=== PATIENT | male | born 1970 | race Caucasian/White ===

== ENCOUNTER 2023-05-07 02:53 | Emergency (ER) | payer MEDICAID ==
[~2023-05-07] VITALS: Ht 175.3 cm; Wt 104.5 kg
[2023-05-07] MEDS ORDERED: normal saline 1000ML IV soln IVB STA (03:45)
[2023-05-07] MEDS ORDERED: famotidine/PF 10 mg/ml inj IV ONE (03:45)
[2023-05-07] MEDS ORDERED: diphenhydrAMINE 50 mg/ml inj IV ONE (03:45)
[2023-05-07] MEDS ORDERED: epiNEPHrine 1 mg/ml inj IM STA (03:45)
[2023-05-07] MEDS ORDERED: dexamethasone 4mg/ml inj IV ONE (03:45)
[2023-05-07 05:03] LABS: ALANINE AMINOTRANSFERASE 24 U/L (12-78); ALBUMIN 3.5 G/DL (3.4-5.0); ALBUMIN/GLOBULIN RATIO 0.9 (1.1-1.5); ALKALINE PHOSPHATASE 136 IU/L (46-116); ANION GAP 8 (8-16); ASPARTATE AMINO TRANSFERASE 15 U/L (10-37); BILIRUBIN,TOTAL 0.5 MG/DL (0.1-1.0); BLOOD UREA NITROGEN 9 MG/DL (7-18); BUN/CREATININE RATIO 11.8 (10.0-20.0); CALCIUM 8.7 MG/DL (8.5-10.1); CHLORIDE 101 MMOL/L (99-107); CREATININE 0.76 MG/DL (0.60-1.10); GLUCOSE 233 MG/DL (70-104); POTASSIUM 3.3 MMOL/L (3.5-5.1); SODIUM 137 MMOL/L (135-145); TOTAL CARBON DIOXIDE 27.9 MMOL/L (24-32); TOTAL PROTEIN 7.5 G/DL (6.4-8.2); eCRCL 112 ML/MIN; eGFR > 90 ML/MIN
[2023-05-07 05:13] LABS: BASOPHILS # (AUTO) 0.1 X10'3 (0-0.2); BASOPHILS % (AUTO) 0.4 % (0-1); EOSINOPHILS # (AUTO) 0.5 X10'3 (0-0.9); EOSINOPHILS % (AUTO) 2.7 % (0-6); HEMATOCRIT 41.9 % (42.0-52.0); HEMOGLOBIN 14.2 g/dl (14.0-17.9); LYMPHOCYTES % (AUTO) 11.7 % (21-51); MEAN CORPUSCULAR HGB CONC 33.9 g/dL (33.0-36.5); MEAN CORPUSCULAR VOLUME 85.5 FL (78-98); MEAN PLATELET VOLUME 7.6 FL (7.4-10.4); MONOCYTES # (AUTO) 1.9 X10'3 (0-0.9); MONOCYTES % (AUTO) 11.1 % (2-12); NEUTROPHILS # (AUTO) 12.4 X10'3 (1.8-7.7); NEUTROPHILS % (AUTO) 74.1 % (42-75); PLATELET COUNT 331 X10'3 (140-440); RED BLOOD COUNT 4.91 X10'6 (4.70-6.10); RED CELL DISTRIBUTION WIDTH 13.9 % (11.5-14.5); WHITE BLOOD COUNT 16.8 X10'3 (4.5-11.0)
[2023-05-07 05:30] LABS: STREP A SCREEN NEGATIVE (Neg)
[2023-05-07] MEDS ORDERED: iohexol 300mg/ml 100ml inj. ONE (07:56)
[2023-05-07 10:06] VITALS: TEMP 98.3
[2023-05-07] MEDS ORDERED: benzocaine (Anbesol) 12ml bottle MM PRN (11:30)
[2023-05-07] MEDS ORDERED: LIDOcaine 40mg/ml topical solution MM ONE (11:45)
--- NOTE | 2023-05-07 12:04 | NUR ---
meds administered by , pt tolerarted procedure well
[2023-05-07 13:24] VITALS: BP 129/84; PULSE 95; RESP 16; O2SAT 98
[2023-05-08] MEDS ORDERED: CLIN300C17 PO (14:27)
[2023-05-10 12:31] LABS: COMPLEMENT C3, SERUM 164 mg/dL (82-167); COMPLEMENT C4, SERUM 48 mg/dL (12-38)
== END 2023-05-07 13:27 | disposition home or self-care (01) ==
LOC: ER 02:54
DX: J02.9 Acute pharyngitis, unspecified (principal); K12.2 Cellulitis and abscess of mouth; J36 Peritonsillar abscess; Z20.822 Contact with and (suspected) exposure to COVID-19
CPT/HCPCS: 36415; 70491; 80053; 83605; 85025; 86160; 87040; 87081; 87811; 87880; 96361; 96372; 96374; 96375; 99285; J0171; J1100; J1200; J3490; J7030; Q9967; A6449

== ENCOUNTER 2023-12-28 11:03 | Emergency (ER) | payer MEDICAID ==
[~2023-12-28] VITALS: Ht 175.3 cm; Wt 91.4 kg
[~2023-12-28 11:03] MED LIST: CLIN300C17 PO
[2023-12-28 12:43] LABS: BASOPHILS # (AUTO) 0.1 X10'3 (0-0.2); BASOPHILS % (AUTO) 0.6 % (0-1); EOSINOPHILS # (AUTO) 0.4 X10'3 (0-0.9); EOSINOPHILS % (AUTO) 2.7 % (0-6); HEMOGLOBIN 14.6 g/dl (14.0-17.9); LYMPHOCYTES # (AUTO) 1.8 X10'3 (1.1-4.8); LYMPHOCYTES % (AUTO) 11.6 % (21-51); MEAN CORPUSCULAR HEMOGLOBIN 28.5 PG (27.0-31.0); MEAN CORPUSCULAR HGB CONC 33.2 g/dL (33.0-36.5); MEAN CORPUSCULAR VOLUME 85.8 FL (78-98); MEAN PLATELET VOLUME 7.4 FL (7.4-10.4); MONOCYTES # (AUTO) 1.1 X10'3 (0-0.9); NEUTROPHILS # (AUTO) 12.3 X10'3 (1.8-7.7); NEUTROPHILS % (AUTO) 78.1 % (42-75); PLATELET COUNT 404 X10'3 (140-440); RED BLOOD COUNT 5.13 X10'6 (4.70-6.10); RED CELL DISTRIBUTION WIDTH 14.1 % (11.5-14.5); WHITE BLOOD COUNT 15.8 X10'3 (4.5-11.0)
[2023-12-28 12:53] VITALS: BP 144/76; PULSE 90; RESP 12; TEMP 98.2; O2SAT 96
[2023-12-28 13:00] LABS: ALANINE AMINOTRANSFERASE 26 U/L (12-78); ALBUMIN 3.3 G/DL (3.4-5.0); ALBUMIN/GLOBULIN RATIO 0.6 (1.1-1.5); ALKALINE PHOSPHATASE 130 IU/L (46-116); ANION GAP 7 (8-16); ASPARTATE AMINO TRANSFERASE 10 U/L (10-37); BILIRUBIN,TOTAL 0.4 MG/DL (0.1-1.0); BLOOD UREA NITROGEN 12 MG/DL (7-18); BUN/CREATININE RATIO 14.6 (10.0-20.0); CALCIUM 8.9 MG/DL (8.5-10.1); CHLORIDE 103 MMOL/L (99-107); CREATININE 0.82 MG/DL (0.60-1.10); GLUCOSE 140 MG/DL (70-104); LIPASE 36 U/L (16-77); POTASSIUM 3.9 MMOL/L (3.5-5.1); SODIUM 139 MMOL/L (135-145); TOTAL CARBON DIOXIDE 28.6 MMOL/L (24-32); TOTAL PROTEIN 8.5 G/DL (6.4-8.2); eCRCL 103 ML/MIN; eGFR > 90 ML/MIN
== END 2023-12-28 15:10 | disposition left against medical advice (07) ==
LOC: ER 11:04
DX: R10.9 Unspecified abdominal pain (principal); R39.198 Other difficulties with micturition; Z53.21 Procedure and treatment not carried out due to patient leaving prior to being seen by health care provider
CPT/HCPCS: 36415; 80053; 83690; 85025

== ENCOUNTER 2024-12-08 14:19 | Inpatient (IN) | payer MEDICAID ==
[~2024-12-08] VITALS: Ht 175.3 cm; Wt 76.0 kg
[2024-12-08] VITALS (11 sets, daily range): BP systolic 80–122; BP diastolic 50–71; PULSE 16–121; RESP 12–22; TEMP 97.6–98.4; O2SAT 96
[~2024-12-08 14:19] MED LIST changes: -CLIN300C17 PO; +FLO0.4C PO; +MAGN400C PO; +PHEN-403 PO
[2024-12-08] MEDS: morphine 4 MG/ML inj SYRINge IV ONE (15:04)
[2024-12-08] MEDS: ondansetron/PF 4mg/2ml inj IV ONE (15:05)
--- NOTE | 2024-12-08 15:14 | Physician Documentation ---
History of Present Illness Chief Complaint: See Chief Complaint Stated Complaint: NAUSEA/PAIN Time Seen by MD: 14:30 OK to notify your PCP?: Yes Primary Medical Doctor: Dr. Blake Source: patient Mode of Arrival: EMS Exam Limitations: clinical condition (LIMITED HISTORY DUE TO PATIENT'S CURRENT STATE OF HEALTH ) HPI 54-year-old male with colon cancer who is here due to "pain and nausea" and "I want to live." Patient is a poor historian and history he provides is limited. Patient reports his brother "Len" takes care of him but he can not remember Clotilde real's phone number. Records that were brought in by EMS show patient has a POLST form filled out that was completed in September 2024 and at this time patient was a full code. Patient reports that somewhere after this he decided to start hospice; however, he now states "I want to live and I want to be a full code." EMS records state that patient was given morphine and zofran prior to transport to ER which did not help his pain. Medication Reconciliation Allergies: Coded Allergies: No Known Allergies (Unverified , 05/07/23) Discontinued Medications Magnesium Oxide (Magnesium), 500 MG PO DAILY, (Reported) Discontinued Reason: patient no longer taking Phenytoin Sodium Extended (DILANTIN capsule), 100 MG PO BID, (Reported) Discontinued Reason: patient no longer taking Tamsulosin Hcl (Flomax), 1 CAP PO DAILY, (Reported) Discontinued Reason: patient no longer taking Past Medical History Past Medical History: Seizures Past Surgical History: no surgical history Alcohol Use: None Drug Use: none Lives with: Alone Lives In: Home Review of Systems All Other Systems at this time: Reviewed and Negative Physical Exam Vital Signs: Temperature: 97.7, Source: Oral, Heart Rate: 124, Respiratory Rate: 14, BP: 101/68, Pulse Oximetry: 100, Weight: 76.000 Physical Exam GENERAL: PATIENT IS VERY THIN, TEMPORAL WASTING, HAVING A HARD TIME KEEPING HIS EYES OPEN WHILE I OBTAIN A HISTORY. HEENT: NCAT, EOMI, PERRL, normal oropharynx, moist oral mucosa. NECK: Supple, trachea midline. CARDIAC: ELEVATED RATE, Regular rhythm, no murmurs, rubs, or gallops. Equal distal pulses. No lower extremity edema, cap refill less than 2 seconds. RESPIRATORY: Equal breath sounds, clear to auscultation bilaterally, no respiratory distress. GASTROINTESTINAL: Non distended, soft, nontender, No guarding or rebound. COLOSTOMY BAG PRESENT, NO BLOOD IN BAG. STOOL IS PALE-VERY LIGHT BROWN IN COLOR. RECTAL: THERE IS FISTUAL NEAR SCROTUM DRAINING COPIOUS AMOUNT OF PURULENT FLUID, MINIMAL SURROUNDING ERYTHEMA LOCALIZED TO AREA AROUND FISTULA. NO BLOOD. NEUROLOGICAL: SLEEPY, HAVING A HARD TIME KEEPING EYES OPEN TO ANSWER QUESTIONS. SKIN: Warm/dry, no pallor, no rash. PSYCH: POOR EYE CONTACT. AROUSABLE BUT HARD TO GET HIM TO KEEP EYES OPEN. Progress Progress Note CONSULTED WITH DR. MCCALL RE: THE COLOCUTANEOUS DRAINING FISTULA WHO REPORTED NOT SURGICAL CASE GIVEN PATIENT'S ADVANCED CANCER AND POOR HEALTH BUT STATED HE WOULD BE HAPPY TO CONSULT IF THE HOSPITALIST WANTED TO CONTACT HIM BUT AGAIN REPORTED THIS IS NOT A SURGICAL AT THIS POINT. Results/Orders Results/Orders Orders - MARIUM WHEELER Cbc/Diff (12/08/24 14:43) BMP (12/08/24 14:43) Completed Orders - MARIUM WHEELER Morphine 4mg/Ml Inj. (Morphine Inj.) (12/08/24 14:45) Ondansetron Inj. (Zofran 4mg/2ml Vial) (12/08/24 14:45) Medications Received in ER Medications (Trade) Dose Ordered Sig/Raffaele Route PRN Reason Start Time Stop Time Status Last Admin Dose Admin (morphine inj.) 4 mg ONCE ONCE IV 12/08/24 14:45 12/08/24 14:46 DC 12/08/24 15:04 4 MG (Zofran 4mg/2ml vial) 4 mg ONCE ONCE IV 12/08/24 14:45 12/08/24 14:46 DC 12/08/24 15:05 4 MG Vital Signs 12/08/24 12/08/24 12/08/24 12/08/24 14:21 14:31 14:34 15:04 Temp 97.7 97.7 Pulse 108 124 Resp 20 24 22 14 B/P (MAP) 101/51 101/68 (79) Pulse Ox 100 100 Medical Decision Making Additional Comments PATIENT IS HERE DUE TO UNCONTROLLED PAIN FROM COLON CANCER WHICH FISTUALIZED TO SKIN STATING THAT HE NO LONGER WANTS TO BE ON HOSPICE AND WANTS TO BE A FULL CODE. I ATTEMPTED TO GET A HOLD OF PATIENT'S BROTHER LEN WHO TAKES CARE OF HIM HOWEVER PATIENT DID NOT RECALL LEN'S PHONE NUMBER AND NURSE WAS NOT ABLE TO ASSIST WITH THIS EITHER. Departure Time of Disposition: 16:10 Admitted to Inpatient Unit: to hospitalist Impression: Primary Impression: Sepsis Qualified Codes: A41.9 - Sepsis, unspecified organism Additional Impressions: Colon cancer Qualified Codes: C18.9 - Malignant neoplasm of colon, unspecified Abdominal pain Qualified Codes: R10.9 - Unspecified abdominal pain Nausea & vomiting Qualified Codes: R11.2 - Nausea with vomiting, unspecified Colocutaneous fistula Normocytic hypochromic anemia Condition: Fair Referrals: NO PRIMARY CARE PROVIDER (PCP) Education Educated: Patient Educated regarding: diagnosis, treatment, need for follow up Signature Scribe Signature: X Attestation: MARIUM SAVAGE Dec 08, 2024 15:14
[2024-12-08 15:51] LABS: ANION GAP 8 (8-16); BASOPHILS % (AUTO) 0.1 % (0-1); BLOOD UREA NITROGEN 77 MG/DL (7-18); BUN/CREATININE RATIO 39.9 (10.0-20.0); CALCIUM 7.8 MG/DL (8.5-10.1); CHLORIDE 112 MMOL/L (99-107); CREATININE 1.93 MG/DL (0.60-1.10); EOSINOPHILS % (AUTO) 0.1 % (0-6); GLUCOSE 169 MG/DL (70-104); LYMPHOCYTES # (AUTO) 1.3 X10'3 (1.1-4.8); LYMPHOCYTES % (AUTO) 5.2 % (21-51); MEAN CORPUSCULAR HEMOGLOBIN 25.5 PG (27.0-31.0); MEAN CORPUSCULAR HGB CONC 31.3 g/dL (33.0-36.5); MEAN CORPUSCULAR VOLUME 81.4 FL (78-98); MEAN PLATELET VOLUME 7.8 FL (7.4-10.4); MONOCYTES % (AUTO) 3.9 % (2-12); NEUTROPHILS # (AUTO) 22.7 X10'3 (1.8-7.7); NEUTROPHILS % (AUTO) 90.7 % (42-75); PLATELET COUNT 280 X10'3 (140-440); POTASSIUM 3.4 MMOL/L (3.5-5.1); RED BLOOD COUNT 2.05 X10'6 (4.70-6.10); RED CELL DISTRIBUTION WIDTH 17.2 % (11.5-14.5); SODIUM 147 MMOL/L (135-145); TOTAL CARBON DIOXIDE 26.9 MMOL/L (24-32); WHITE BLOOD COUNT 24.9 X10'3 (4.5-11.0); eCRCL 43 ML/MIN; eGFR 36 ML/MIN
[2024-12-08 16:05] LABS: HEMATOCRIT 16.7 % (42.0-52.0); HEMOGLOBIN 5.2 g/dl (14.0-17.9)
--- NOTE | 2024-12-08 16:11 | ELECTROCARDIOGRAPH REPORT ---
[facility] Test Date: 2024-12-08 Test Time: 14:29:02 Pat Name: DEBRA FAN Department: EMERGENCY ROOM Room: Gender: M Film Or Tape Librarian: DIONE : 1970 Requested By: MARIUM WHEELER Order Number: [id number] Reading MD: Measurements Intervals [place] Rate: 123 P: 80 [place]: 116 QRS: 91 QRSD: 82 T: 44 QT: 311 QTc: 445 Interpretive Statements Sinus tachycardia Borderline right axis deviation Please click the below link to view image of tracing.
[2024-12-08 16:32] LABS: APTT 25 SECONDS (22-32); INR 1.2 INR; PROTHROMBIN TIME 12.2 SECONDS (9.0-12.0)
[2024-12-08 16:59] LABS: LACTIC SEPSIS 1.7 MMOL/L (0.4-2.0)
[2024-12-08] MEDS ORDERED: potassium Cl 40MEQ/1/2NS 520ml 520 ML IV PRN (17:35)
[2024-12-08] MEDS ORDERED: ondansetron/PF 4mg/2ml inj IV PRN (17:35)
[2024-12-08] MEDS ORDERED: HYDROmorphone/PF 0.2 MG/ML SYRINGE IV PRN (17:35)
[2024-12-08] MEDS ORDERED: magnesium sulf-water 2g/50mL 50 ML IV PRN (17:35)
[2024-12-08] MEDS ORDERED: mag hydrox/Alum hydrox/simeth 30ml oral suspension PO PRN (17:35)
[2024-12-08] MEDS ORDERED: HYDROcodone/acetaminophen 10/325mg tab PO PRN (17:35)
[2024-12-08] MEDS ORDERED: acetaminophen 325mg tablet PO PRN ×2 (17:35)
[2024-12-08] MEDS ORDERED: magnesium sulf-water 4G/100mL 100 ML IV PRN (17:35)
[2024-12-08] MEDS ORDERED: magnesium Cl slow-release 64mg tablet PO PRN (17:35)
[2024-12-08] MEDS ORDERED: potassium Cl 20 mEq SR tablet PO PRN (17:35)
[2024-12-08] MEDS: HYDROcodone/acetaminophen 5mg/325mg tablet PO PRN (18:02)
[2024-12-08] MEDS: piperacillin/tazo 3.375gm/50ml 50 ML IV SCH (18:42)
--- NOTE | 2024-12-08 18:48 | HISTORY AND PHYSICAL-Residence ---
History & Physical Providers to CC Resident Creating Document: PATRICIA MCCRACKEN, RUPERTO ~ History of Present Illness Primary Medical Doctor: Dr. Blake Reason for Admit\\Complaint: pain, colon cancer, severe anemia History of Present Illness 54-year-old male history of advanced colon cancer S/P colectomy on May,, epilepsy, type 2 diabetes mellitus, presented to the ED with chief complaints of severe pain. Patient is a very poor historian and unable to communicate, who was brought in by EMS and he has a POLST that states full code. He was admitted here in August 2024 and was found to have a pelvic mass with fistulous tract extending to the left gluteal soft tissues. Dr. Shultz was consulted who recommended transfer to higher level of care to be evaluated by a colorectal surgeon, the transfer could not be done as the patient left AMA and decided to drive to [place] in [place] to see if they could be admitted there for evaluation by a colorectal surgeon. At [facility] he had a operation done for the fistula and he was sent home on hospice. He has been in hospice for roughly two months now. Set up hospice with [facility]. Today his sister who I talked to over call states that he has been declining and has been in excessive pain and needed care all the time and hence transferred him to the hospital. She also states that he needs "better care" and wants to send him to a [facility] where he has support/care at all times. She states that he has been given morphine for the pain and has my brain is clogged and he is unable to respond well. She is aware of the advanced care directive form that he was a full code. She is unable to decide if he will have to be full code/hospice at this time. Per POL he is a full code right now, readdress code status in a.m. sister contact . [phone]. She will be visiting the hospital tomorrow at around 11:00 a.m.. Also discussed with her if he is interested in pursuing the surgical route considering his actively draining fistula, she is unable to decide this time. From the conversation with father Celestine and sister it sounds like they need to set him up with home hospice, case management to work with the family regarding the same. Allergies: Coded Allergies: No Known Allergies (Unverified , 05/07/23) Home Medications Home Medications Active Past Medical History Past Medical History Colon cancer diagnosed on May 2024. Status post colectomy Colorectal cancer with a fistulous tract into the gluteal tissue Epilepsy. Type 2 diabetes mellitus. Past Surgical History Surgical History Comment S/P colectomy on May 2024 due to colon cancer. Past Social History Smoking: Less than 1 pack/day Alcohol Use: None Drug Use: None Lives with: Alone Lives In: Home ROS All Other Systems: Reviewed and Negative ROS Reviewed in full. All negative except for pertinent positive HPI. Exam Vitals: Vital Signs Date Time Temp Pulse Resp B/P (MAP) Pulse Ox O2 Delivery O2 Flow Rate FiO2 12/08/24 18:33 98.2 121 14 122/67 12/08/24 18:07 99 General: General: Extremely pale, emaciated frail appearing male, no acute distress HEENT: Conjunctiva pale, Sclera clear, Mucus Membranes dry. Neck: Supple without masses and tenderness. Resp: Unlabored. Equal breath sounds bilaterally. Heart: Regular rhythm, normal S1 and S2, no rub, murmur or gallop. Abdomen: Colostomy bag in place. Normal bowel sounds x4. No guarding or rigidity noted. Gluteal area: Fistula at the gluteal site with copious amount of foul-smelling purulent discharge, with surrounding erythema. Extremities: Flexed lower extremities, restricted range of motion. Bilateral lower extremity edema 3+ ORDER BOOKER: Unable to determine Diagnostic Data Last Recorded Lab Results: 12/08/24 1513 12/08/24 1513 Diagnostic Data: Laboratory Tests Test 12/08/24 15:13 Prothrombin Time 12.2 SECONDS (9.0-12.0) H INR International Normalized Ratio 1.2 INR Activated Partial Thromboplast Time 25 SECONDS (22-32) Coagulation Comments Advance Care Planning Advanced Care plannin - 30 Minutes Additional Plan 54-year-old male history of advanced colon cancer S/P colectomy on May,, epilepsy, type 2 diabetes mellitus, presented to the ED with chief complaints of severe pain. Colorectal malignancy status post colectomy Colorectal mass with on actively draining foul-smelling fistula in the gluteal region Significant leukocytosis Sepsis secondary to above ED had contacted Dr. Dale regarding the fistula, mentioned is not a surgical case at this time given patient's advanced cancer and poor health Elevated procalcitonin and WBCs Started vancomycin and Zosyn Wound care consulted, appreciate recommendations We will need to talked with the family sister in a.m. again regarding goals of care. Per her she wants him to be DNR Severe anemia Hemoglobin 5.2, hematocrit 16.7 Follow up with stool occult blood Currently being transfused 2 units of blood Q.6 hours H and H and transfuse for hemoglobin less than seven CASSIE likely secondary to vasomotor nephropathy Monitor BMP Awaiting med rec Code Status: DNR DVT prophylaxis: Heparin Analgesia/sedation: Morphine/[place] Line/tube: PIV GI prophylaxis: Protonix Prognosis: Guarded Disposition: Continue medical management. PER SISTER SHE WANTS HIM TO BE DNR Patricia Mccracken MD. IM Resident PGY-2 Date of Service: Dec 08, 2024 Billing Provider: POLO NAIR MD, ELIZABETH, RES Dec 08, 2024 18:48
[2024-12-08] MEDS: normal saline 1000ml 1,000 ML IV SCH (19:23)
[2024-12-08] MEDS: vancomycin/NS 1 GM ADD-VANTAGE 250 ML IV SCH (19:24)
[2024-12-08] MEDS: pantoprazole 40 MG vial IV SCH (19:31)
[2024-12-08] MEDS: K and/or MAG REPLACEMENT MC SCH (20:00)
[2024-12-08] MEDS: heparin, porcine 5000 units/ml vial SQ SCH (20:00)
[2024-12-08 20:11] LABS: MEAN CORPUSCULAR HEMOGLOBIN 25.6 PG (27.0-31.0); MEAN CORPUSCULAR HGB CONC 31.8 g/dL (33.0-36.5); MEAN CORPUSCULAR VOLUME 80.4 FL (78-98); MEAN PLATELET VOLUME 7.4 FL (7.4-10.4); PLATELET COUNT 240 X10'3 (140-440); RED BLOOD COUNT 2.53 X10'6 (4.70-6.10); RED CELL DISTRIBUTION WIDTH 16.3 % (11.5-14.5); WHITE BLOOD COUNT 23.4 X10'3 (4.5-11.0)
[2024-12-08 20:19] LABS: HEMATOCRIT 20.3 % (42.0-52.0); HEMOGLOBIN 6.5 g/dl (14.0-17.9)
--- NOTE | 2024-12-08 20:19 | ELECTROCARDIOGRAPH REPORT ---
[facility] Test Date: 2024-12-08 Test Time: 20:17:19 Pat Name: DEBRA FAN Department: EMERGENCY ROOM Room: ED 6 1 Gender: M Room Attendant: DIONE : 1970 Requested By: LUPE DOCKERY Order Number: [id number] Reading MD: Measurements Intervals [place] Rate: 130 P: 69 [place]: 143 QRS: 84 QRSD: 88 T: 35 QT: 317 QTc: 466 Interpretive Statements Sinus tachycardia Low voltage with right axis deviation Please click the below link to view image of tracing.
[2024-12-08] MEDS: potassium Cl 20 mEq SR tablet PO PRN (22:06)
[2024-12-08 23:49] LABS: BILIRUBIN,URINE NEGATIVE (Neg); CLARITY,URINE CLOUDY (Clear); COLOR,URINE YELLOW (Yellow); GLUCOSE, URINE NEGATIVE (Neg); KETONES,URINE NEGATIVE (Neg); LEUKOCYTE ESTERASE ,URINE LARGE (Neg); NITRITES, URINE NEGATIVE (Neg); OCCULT BLOOD,URINE NEGATIVE (Neg); PROTEIN,URINE NEGATIVE (Neg); UA COLLECTION TYPE NON-SPECIFIED; UROBILINOGEN,URINE 0.2 E.U/dL (0.2-1.0)
[2024-12-08 23:57] LABS: BACTERIA,URINE 4+ /HPF (Neg); SQUAMOUS EPITHELIAL CELL,UR NONE SEEN /LPF (FEW); WBC,URINE TNTC /HPF (0-4)
[2024-12-09 01:10] VITALS: RESP 22; O2SAT 96
[2024-12-09 02:00] VITALS: BP 100/59; PULSE 82; RESP 15; TEMP 97.5; O2SAT 96
[2024-12-09] MEDS: morphine 2 MG/ML inj. syringe IV PRN (02:11)
[2024-12-09] MEDS ORDERED: OLANZapine **IM** 10 mg inj. IM ONE (02:55)
[2024-12-09] MEDS: OLANZapine **IM** 10 mg inj. IM ONE (03:24)
[2024-12-09] MEDS: normal saline 1000ml 1,000 ML IV ONE (04:10)
[2024-12-09] MEDS: LORazepam 2 mg/ml vial IV ONE (04:19)
[2024-12-09 04:35] VITALS: BP 104/54; PULSE 117; RESP 20; TEMP 97.8
[2024-12-09 04:43] VITALS: BP 96/49; PULSE 113; RESP 21; TEMP 97.7
[2024-12-09 05:24] VITALS: BP 78/43; PULSE 108; RESP 19; TEMP 97.2
[2024-12-09] MEDS ORDERED: piperacillin/tazo 3.375gm/50ml 50 ML IV SCH (10:59)
[2024-12-09] MEDS: lactose-reduced food (Ensure Enlive) - 237ml bottle PO SCH (12:00)
[2024-12-09] MEDS ORDERED: LORazepam 2 mg/ml vial IV PRN (12:35)
[2024-12-09] MEDS ORDERED: morphine 10mg/ml inj. IV PRN (12:35)
[2024-12-09] MEDS: piperacillin/tazo 3.375gm/50ml 50 ML IV SCH (13:53)
[2024-12-09] MEDS: morphine 10mg/0.5ml (conc. morphine) oral syringe PO PRN (16:26)
[2024-12-09 18:00] VITALS: BP 97/57; PULSE 63; RESP 16; TEMP 98.1; O2SAT 97
--- NOTE | 2024-12-09 18:40 | PROGRESS NOTE- Residence ---
Progress Note - Resident Providers to CC Resident Creating Document: LAYO DENTON, RES ~ Antibiotic Timeout Antibiotic Ordered?: No Subjective The patient has been evaluated at the bedside. Further conversation regarding code status with patient and sister with was at the bedside, they stated that the patient wants to be DNR with comfort care at this point. Objective Vital Signs Date Time Temp Pulse Resp B/P (MAP) Pulse Ox O2 Delivery O2 Flow Rate FiO2 12/09/24 17:26 15 12/09/24 15:45 Room Air 12/09/24 06:00 79 12/09/24 05:24 97.2 78/43 12/09/24 02:00 96 12/08/24 23:00 0 Physical exam: General: Awake, pale, cachectic, not in acute distress. HEENT: Conjunctive are pale, sclerae clear, no icterus, pupil is equal in both sides, reactive to light, no ear discharge, no pharyngeal erythema or an edema. Neck: Supple, no JVD, no lymphadenopathy and thyromegaly. Chest: Equal air entry on both lungs, no additional sounds no rhonchi no wheezing at the moment. Cardiovascular: S1-S2 regular sinus rhythm and, regular rate, no gallops, no rubs, no murmurs Abdomen: No visible peristalsis, Bowel sounds present on auscultation, soft, nontender, no guarding, no rigidity, colostomy bag in place. Extremities: No obvious deformities, 3+ pedal edema bilaterally, capillary refill intact. Gluteal area: Fistula at the gluteal site with copious amount of foul-smelling purulent discharge, with surrounding erythema. Musculoskeletal: No joint swelling, deformities, inflammations, and no scoliosis and back tenderness Skin: Pale, Warm and dry. Result Diagram: 12/08/24200312/08/24 1513 Coagulation Studies Laboratory Tests Test 12/08/24 15:13 Prothrombin Time 12.2 SECONDS (9.0-12.0) H INR International Normalized Ratio 1.2 INR Activated Partial Thromboplast Time 25 SECONDS (22-32) Coagulation Comments Advance Care Planning Advanced Care plannin - 30 Minutes (I spent a total of 17 minutes on reviewing various resuscitative measures/ACP with the patient at the time of admission. The patient has decided on DNR with comfort care) Assessment Assessment 54-year-old male history of advanced colon cancer S/P colectomy on May,, epilepsy, type 2 diabetes mellitus, presented to the ED with chief complaints of severe pain. Plan Plan Colorectal malignancy status post colectomy Colorectal mass with on actively draining foul-smelling fistula in the gluteal region Significant leukocytosis Sepsis secondary to above Severe anemia CASSIE likely secondary to vasomotor nephropathy Further conversation with sister Mrs. Cruz who was at the bedside and patient, they decided for DNR with comfort care. Sister states that patient's brother who was taking care of him is mentally disabled and is not able to take care of him at home anymore. They agree for placement for hospice. Comfort care measurements started. Lorazepam for anxiety. Morphine for pain. Code Status: DNR with comfort care DVT prophylaxis: None Analgesia/sedation: Morphine/Ativan Line/tube: None GI prophylaxis: None Prognosis: Guarded Disposition: Comfort care measurements started on 12/09/2024. The patient is awaiting for placement for hospice. Layo Dubon Internal Medicine Resident [facility] Date of Service: Dec 09, 2024 Billing Provider: POLO NAIR MD,LAYO RIVERS, RES Dec 09, 2024 18:40
[2024-12-10 08:00] VITALS: RESP 20; O2SAT 95
[2024-12-10 10:00] VITALS: BP 98/54; PULSE 107; RESP 14; TEMP 97.4; O2SAT 98
[2024-12-10] MEDS: morphine 10mg/0.5ml (conc. morphine) oral syringe PO PRN (11:56)
--- NOTE | 2024-12-10 14:10 | DISCHARGE SUMMARY-Residence ---
Discharge Summary Providers to CC Resident Creating Document: DAGOBERTO MCCRACKEN RES ~ Discharge Summary Admission Diagnosis: SEPSIS Hospital Course DATE OF ADMISSION: 12/08/2024 DATE OF DISCHARGE: 12/10/2024 Hospital course same as mentioned in the DC summary. Discharge Diagnosis\\Comment: Colorectal malignancy status post colectomy, Colorectal mass with on actively draining foul-smelling fistula in the gluteal region, Sepsis with leukocytosis, Severe anemia, CASSIE likely secondary to vasomotor nephropathy History of Epilepsy. History of type 2 diabetes mellitus. Operations\\Procedures: None Consultants: Surgery - Dr. Dale Complications: None Condition on DC: Stable for transfer Medication Profile: No Active Prescriptions or Reported Meds Discharge Summary: As per HPI: 54-year-old male history of advanced colon cancer S/P colectomy on May,, epilepsy, type 2 diabetes mellitus, presented to the ED with chief complaints of severe pain. Patient is a very poor historian and unable to communicate, who was brought in by EMS and he has a POLST that states full code. He was admitted here in August 2024 and was found to have a pelvic mass with fistulous tract extending to the left gluteal soft tissues. Dr. Chamberlain was consulted who recommended transfer to higher level of care to be evaluated by a colorectal surgeon, the transfer could not be done as the patient left AMA and decided to drive to [place] in [place] to see if they could be admitted there for evaluation by a colorectal surgeon. At [facility] he had a operation done for the fistula and he was sent home on hospice. He has been in hospice for roughly two months now. Set up hospice with [facility]. Today his sister who I talked to over call states that he has been declining and has been in excessive pain and needed care all the time and hence transferred him to the hospital. She also states that he needs "better care" and wants to send him to a custodial where he has support/care at all times. She states that he has been given morphine for the pain and has my brain is clogged and he is unable to respond well. She is aware of the advanced care directive form that he was a full code. She is unable to decide if he will have to be full code/hospice at this time. Per POLST he is a full code right now, readdress code status in a.m. sister contact . [phone]. She will be visiting the hospital tomorrow at around 11:00 a.m.. Also discussed with her if he is interested in pursuing the surgical route considering his actively draining fistula, she is unable to decide this time. From the conversation with father Celestine and sister it sounds like they need to set him up with home hospice, case management to work with the family regarding the same. Hospital Course: On further evaluation, he was febrile with marked leukocytosis and severe aenmia, and examination revealed an actively draining, foul-smelling fistulous tract in the left gluteal region, considered the septic source. Broad spectrum antibiotic therapy with IV Vancomycin and IV Zosyn was given. Was severely anemic with Hb 5.2 on admission, was given 3 units PRBCs in total during his hospital course. Surgeon was consulted by ED, but given his advanced malignancy and poor functional status, operative management was deferred. 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 After repeated [id number] discussions with his sister and father, his code status was changed on 12/09/24 from full code to DNR with comfort care only; antibiotics, DVT and GI prophylaxis were discontinued, and comfort-focused measures were initiated with Morphine was used for pain control, along with lorazepam for anxiety.. He is currently hemodynamically stable with adequate pain control. His mentation improved significantly from the day of admission, he is alert awake and oriented today, no acute distress noted and responding well. He is being discharged to rehab with hospice care. His hospital course is uncomplicated he is hemodynamically stable on the day of discharge and his PE is as follows: General: Extremely pale, emaciated frail appearing male, no acute distress HEENT: Conjunctiva pale, Sclera clear, Mucus Membranes moist. Neck: Supple without masses and tenderness. Resp: Unlabored. Equal breath sounds bilaterally. Heart: Regular rhythm, normal S1 and S2, no rub, murmur or gallop. Abdomen: Colostomy bag in place. Normal bowel sounds x4. No guarding or rigidity noted. Gluteal area: Fistula at the gluteal site with copious amount of foul-smelling purulent discharge, with surrounding erythema. Extremities: Flexed lower extremities, restricted range of motion. Bilateral lower extremity edema 2+ [employer] LABORATORY ASSISTANT: No gross sensory or motor abnormalities. Discharge medications are as follows: Roxanol 10 mg PO PRN Ativan 2 mg PO PRN Laboratory Tests Test 12/08/24 15:13 12/08/24 16:29 12/08/24 20:04 12/08/24 23:04 White Blood Count 24.9 X10'3 23.4 X10'3 Red Blood Count 2.05 X10'6 2.53 X10'6 Hemoglobin 5.2 g/dl 6.5 g/dl Hematocrit 16.7 % 20.3 % Mean Corpuscular Volume 81.4 FL 80.4 FL Mean Corpuscular Hemoglobin 25.5 PG 25.6 PG Mean Corpuscular Hemoglobin Concent 31.3 g/dL 31.8 g/dL Red Cell Distribution Width 17.2 % 16.3 % Platelet Count 280 X10'3 240 X10'3 Mean Platelet Volume 7.8 FL 7.4 FL Neutrophils (%) (Auto) 90.7 % Lymphocytes (%) (Auto) 5.2 % Monocytes (%) (Auto) 3.9 % Eosinophils (%) (Auto) 0.1 % Basophils (%) (Auto) 0.1 % Neutrophils # (Auto) 22.7 X10'3 Lymphocytes # (Auto) 1.3 X10'3 Monocytes # (Auto) 1.0 X10'3 Eosinophils # (Auto) 0.0 X10'3 Basophils # (Auto) 0.0 X10'3 CBC Comment Prothrombin Time 12.2 SECONDS INR International Normalized Ratio 1.2 INR Activated Partial Thromboplast Time 25 SECONDS Coagulation Comments Miscellaneous Test See note Sodium Level 147 MMOL/L Potassium Level 3.4 MMOL/L Chloride Level 112 MMOL/L Carbon Dioxide Level 26.9 MMOL/L Anion Gap 8 Blood Urea Nitrogen 77 MG/DL Creatinine 1.93 MG/DL Estimated GFR/1.73 m2 36 ML/MIN BUN/Creatinine Ratio 39.9 Glucose Level 169 MG/DL Calcium Level 7.8 MG/DL Troponin I High Sensitivity 31 ng/L Albumin 1.0 G/DL Procalcitonin 3.17 NG/ML Chemistry Comments Lactic Acid Level 1.7 MMOL/L Ammonia 14 UMOL/L Hematology Comments Glucometer 132 mg/dl Test 12/08/24 23:10 Urine Specimen Description Non-specified Urine Color Yellow Urine Clarity Cloudy Urine pH 6.0 Urine Specific [place] 1.015 Urine Protein Negative mg/dl Urine Glucose (UA) Negative mg/dl Urine Ketones Negative mg/dl Urine Occult Blood Negative Urine Nitrite Negative Urine Bilirubin Negative Urine Urobilinogen 0.2 E.U/dL Urine Leukocyte Esterase Large Urine RBC 3-10 /HPF Urine WBC Tntc /HPF Urine Squamous Epithelial Cells None seen /LPF Urine Bacteria 4+ /HPF Urine Culture Indicated Indicated Volume Urine Centrifuged 10 ml Urine Comment *Problems/Diagnosis: (1) Colorectal malignant neoplasm with tumor directly invading other organs or structures Status: Chronic (2) Severe anemia Total Time Spent on D/C: > 30 Minutes Date of Service: Dec 10, 2024 Billing Provider: POLO NAIR MD, ELIZABETH, RES Dec 10, 2024 13:42
[2024-12-10 15:26] VITALS: RESP 15
[2024-12-11] MEDS ORDERED: VANCOMYCIN LEVEL IV ONE (18:30)
== END 2024-12-10 17:30 | disposition hospice, inpatient (51) | DRG 720 ==
LOC: ER 14:20 → ED HOLD 17:38 → PCU 3S 23:43 → SUR 3N 12-09 15:55
PROVIDERS: ADMIT Internal Medicine; ATTEND Internal Medicine
PROC: 30233N1 Transfusion of Nonautologous Red Blood Cells into Peripheral Vein, Percutaneous Approach (ICD-10-PCS; principal; 2024-12-08)
DX: A41.9 Sepsis, unspecified organism (principal); N17.0 Acute kidney failure with tubular necrosis; K63.2 Fistula of intestine; C18.9 Malignant neoplasm of colon, unspecified; D50.9 Iron deficiency anemia, unspecified; D64.9 Anemia, unspecified; E11.9 Type 2 diabetes mellitus without complications; G40.909 Epilepsy, unspecified, not intractable, without status epilepticus; F41.9 Anxiety disorder, unspecified; Z66 Do not resuscitate; Z51.5 Encounter for palliative care; Z90.49 Acquired absence of other specified parts of digestive tract
CPT/HCPCS: 36415; 36430; 80048; 81001; 82140; 82948; 83605; 84145; 84484; 85025; 85027; 85610; 85730; 86885; 86900; 86901; 86920; 87040; 87077; 87088; 87186; 92508; 92616; 93005; 96374; 96375; 99285; A6213; A6590; G0378; J1644; J2060; J2270; J2405; J2470; J2543; J3370; J3490; J7030; J7040; J7050; P9016